=== PATIENT | female | born 2000 | race Caucasian/White ===

== ENCOUNTER 2019-12-18 14:00 | Emergency (ER) | payer MEDICAID ==
[2019-12-18 14:10] VITALS: BP 131/83
[2019-12-18] MEDS ORDERED: POLYMYXIN B SULFATE/TMP OPH SOLN (10 ML/ER DISP) OU PRN (14:56)
--- NOTE | 2019-12-18 14:59 | ER Document Report ---
HPI - HPI Time Seen by Provider: 12/18/19 14:52 Pain Level: Denies Notes: Otherwise healthy 19-year-old female presenting to the emergency department with complaints of bilateral eye redness and drainage. Patient denies any pain, denies any blurred vision. She states this is been going on for approximately 24 hours. Denies the use of any contact lenses. - EENT EENT: REPORTS: Eye problems - REPRODUCTIVE Reproductive: DENIES: : Past Medical History - General Information source: Patient - Social History Smoking Status: Never Smoker Chew tobacco use (# tins/day): No Frequency of alcohol use: None Drug Abuse: None Family History: Reviewed & Not Pertinent Patient has suicidal ideation: No Patient has homicidal ideation: No - Medical History Medical History: Negative Past Surgical History: Reports: Hx Tonsillectomy Vertical Provider Document - CONSTITUTIONAL Notes: PHYSICAL EXAMINATION: GENERAL: Well-appearing, well-nourished and in no acute distress. HEAD: Atraumatic, normocephalic. EYES: Pupils equal round extraocular movements intact, conjunctiva are erythematous bilaterally with yellowish exudates. ENT: Nares patent NECK: Normal range of motion LUNGS: No respiratory distress Musculoskeletal: Normal range of motion NEUROLOGICAL: Normal speech, normal gait. PSYCH: Normal mood, normal affect. SKIN: Warm, Dry, normal turgor, no rashes or lesions noted. Course - Re-evaluation Re-evalutation: Exam consistent with conjunctivitis. Will start patient on Polytrim drops. Patient verbalized understanding and agreement with plan. - Vital Signs Vital signs: Temp Pulse Resp BP Pulse Ox 98.2 F 101 H 18 131/83 H 99 12/18/19 14:09 12/18/19 14:09 12/18/19 14:09 12/18/19 14:09 12/18/19 14:09 Discharge - Discharge Clinical Impression: Conjunctivitis Qualifiers: Conjunctivitis type: acute Acute conjunctivitis type: unspecified Laterality: bilateral Qualified Code(s): H10.33 - Unspecified acute conjunctivitis, bilateral Condition: Stable Disposition: HOME, SELF-CARE Instructions: Conjunctivitis ([facility]), Eyedrop Use ([facility]) Additional Instructions: Please use antibiotic drops as prescribed. Place 1 drop in each eye every 3 hours while awake for the next 7 days. Wash all of your linens tomorrow.
== END 2019-12-18 15:03 | disposition home or self-care (01) ==
LOC: ER 14:00
DX: H10.33 Unspecified acute conjunctivitis, bilateral (principal); H57.13 Ocular pain, bilateral
CPT/HCPCS: 99282; J3490

== ENCOUNTER 2020-07-15 03:28 | Emergency (ER) | payer MEDICAID, OTHER ==
[2020-07-15 04:26] LABS: ABSOLUTE EOSINOPHILS # (AUTO) 0.1 10^3/uL (0.0-0.6); ABSOLUTE LYMPHOCYTES (AUTO) 2.5 10^3/uL (0.5-4.7); ABSOLUTE NEUT (AUTO) 15.6 10^3/uL (1.7-8.2); BASOPHILS % (AUTO) 0.1 % (0-2); EOSINOPHILS % (AUTO) 0.4 % (0-6); HEMOGLOBIN 12.6 g/dL (12.0-15.5); LYMPHOCYTES % (AUTO) 13.2 % (13-45); MEAN CORPUSCULAR HEMOGLOBIN 29.5 pg (27.0-33.4); MEAN CORPUSCULAR HGB CONC 34.9 g/dL (32.0-36.0); MEAN CORPUSCULAR VOLUME 85 fl (80-97); MONOCYTES % (AUTO) 5.1 % (3-13); PLATELET COUNT 264 10^3/uL (150-450); RED BLOOD COUNT 4.26 10^6/uL (3.72-5.28); RED CELL DISTRIBUTION WIDTH 13.6 % (11.5-14.0); SEGMENTED NEUTROPHILS % (AUTO) 81.2 % (42-78); TOTAL CELLS COUNTED % (AUTO) 100 %; WHITE BLOOD COUNT 19.2 10^3/uL (4.0-10.5)
[2020-07-15 04:39] LABS: ALBUMIN 4.1 g/dL (3.5-5.0); ALKALINE PHOSPHATASE 41 U/L (38-126); ANION GAP 12 (5-19); ASPARTATE AMINO TRANSFERASE 20 U/L (14-36); BILIRUBIN,DIRECT 0.1 mg/dL (0.0-0.4); BILIRUBIN,TOTAL 0.9 mg/dL (0.2-1.3); BLOOD UREA NITROGEN 5 mg/dL (7-20); CALCIUM 9.7 mg/dL (8.4-10.2); CARBON DIOXIDE 20 mmol/L (22-30); CHLORIDE 105 mmol/L (98-107); GLUCOSE 91 mg/dL (75-110); POTASSIUM 3.8 mmol/L (3.6-5.0); TOTAL PROTEIN 6.8 g/dL (6.3-8.2)
[2020-07-15 05:00] LABS: APPEARANCE,URINE SLIGHTLY-CLOUDY; BILIRUBIN,URINE NEGATIVE (NEGATIVE); COLOR,URINE YELLOW; GLUCOSE, URINE NEGATIVE (NEGATIVE); KETONES,URINE NEGATIVE (NEGATIVE); LEUKOCYTE ESTERASE,URINE MODERATE (NEGATIVE); NITRITE,URINE NEGATIVE (NEGATIVE); PROTEIN,URINE NEGATIVE (NEGATIVE); URINE SPECIFIC GRAVITY 1.019; UROBILINOGEN,URINE NEGATIVE mg/dL (<2.0)
[2020-07-15] MEDS ORDERED: METOCLOPRAMIDE HCL INJ/PF 10 MG/2 ML SDV IV ONE (05:18)
[2020-07-15] MEDS ORDERED: NORMAL SALINE 1000 ML 1,000 ML IV ONE (05:18)
[2020-07-15] MEDS ORDERED: CEFTRIAXONE 1 GM/D5W RTU 50 ML IV ONE (05:59)
--- NOTE | 2020-07-15 06:01 | ER Document Report ---
ED General - General Chief Complaint: Abdominal Pain Stated Complaint: 9 WEEKS WITH SEVERE CRAMPS Time Seen by Provider: 07/15/20 05:59 Notes: 20-year-old female G1, P0 approximate 10 weeks by dates presents with upper abdominal pain intermittently with nausea. She vomited once in the waiting room. Started last night worse this morning. No right lower quadrant pain, no fever, mild dysuria and frequency. No more discharge than usual and no bleeding. She has not been seen by [facility] but is planning to do so, but gets most of her care through the [facility] She denies a history of kidney stones or pyelonephritis. - Related Data Allergies/Adverse Reactions: No Known Allergies Allergy (Verified 07/15/20 03:42) Home Medications: PRE-NATALS Past Medical History - General Information source: Patient - Social History Smoking Status: Never Smoker Frequency of alcohol use: None Drug Abuse: None Family History: Reviewed & Not Pertinent Past Surgical History: Reports: Hx Tonsillectomy Review of Systems - Review of Systems Notes: REVIEW OF SYSTEMS GEN: Denies fever, chills, weight loss ENT: Denies sore throat, nasal discharge, ear pain EYES: Denies blurry vision, eye pain, discharge CV: Denies chest pain, palpitations, edema RESP: Denies cough, shortness of breath, wheezing GI: See HPI rrhea MSK: Denies joint pain/swelling, edema, SKIN: Denies rash, skin lesions LYMPH: Denies swollen glands/lymph nodes NEURO: Denies headache, focal weakness or numbness, dizziness PSYCH: Denies depression, suicidal or homicidal ideation PHYSICAL EXAMINATION General: No acute distress, well-nourished Head: Atraumatic, normocephalic ENT: Mouth normal, oropharynx moist, no exudates or tonsillar enlargement Eyes: Conjunctiva normal, pupils equal, lids normal Neck: No JVD, supple, no guarding CVS: Normal rate, regular rhythm, no murmurs Resp: No resp distress, equal and normal breath sounds bilaterally GI: Nondistended, soft, no tenderness to palpation, no rebound or guarding Ext: No deformities, no edema, normal range of motion in upper and lower ext Back: No CVA or midline TTP Skin: No rash, warm Lymphatic: No lymphadeopathy noted Neuro: Awake, alert. Face symmetric. GCS 15. Physical Exam - Vital signs Vitals: Temp Pulse Resp BP Pulse Ox 98.2 F 90 18 145/79 H 99 07/15/20 03:40 07/15/20 03:40 07/15/20 03:40 07/15/20 03:40 07/15/20 03:40 Course - Re-evaluation Re-evalutation: 07/15/20 06:10 Young female presents with nausea vomiting during with some transient abdominal pain not reproducible on exam She has no CVA tenderness no abdominal tenderness, and after her ultrasound ordered at triage I saw her in triage. She looks well heart rate is just around 100 no tenderness and has had ice chips without vomiting thus far. She does have a white count, however I would not consider this florid sepsis and will attempt to treat her with oral Zofran begin oral antibiotics. Given that she is already tolerating p.o. I think this is reasonable plan Her ultrasound is reassuring per parts technician will be read by radiology but I verify these findings Also discussed with Dr. Walton from [facility] who agrees that she does not meet admission criteria can be safely managed as an outpatient and will get her in the office in the next couple of days. I have discussed with the patient there likely diagnosis, aftercare plan, follow-up plans and my usual and customary return precautions. They verbalized understanding of this. - Vital Signs Vital signs: Temp Pulse Resp BP Pulse Ox 98.2 F 90 18 145/79 H 99 07/15/20 03:40 07/15/20 03:40 07/15/20 03:40 07/15/20 03:40 07/15/20 03:40 - Laboratory Result Diagrams: 07/15/20 04:05 07/15/20 04:05 Laboratory results interpreted by me: 07/15/20 07/15/20 07/15/20 04:05 04:05 04:05 WBC 19.2 H Absolute Neuts (auto) 15.6 H Seg Neutrophils % 81.2 H Carbon Dioxide 20 L BUN 5 L Creatinine 0.40 L Beta HCG, Quant 32399.00 H Ur Leukocyte Esterase MODERATE H - Diagnostic Test Radiology reviewed: Image reviewed Discharge - Discharge Clinical Impression: Pyelonephritis Condition: Good Disposition: HOME, SELF-CARE Instructions: Pyelonephritis ([facility]), Rocephin ([facility]) Additional Instructions: Given your and UTI is very important you follow-up with your OB [facility] whom I have ild already spoken with Please call first thing tomorrow for an appointment. Prescriptions: Cefuroxime Axetil [Ceftin 500 mg Tablet] 1 tab PO BID #20 tablet Ondansetron [Zofran Odt 4 mg Tablet] 1 - 2 tab PO Q4H PRN #15 tab.rapdis PRN Reason: For Nausea/Vomiting
[2020-07-15] MEDS ORDERED: ONDANSETRON 4 MG TAB.RAPDIS PO ONE (06:07)
[2020-07-15] MEDS ORDERED: CEFUROXIME 500 MG TABLET PO ONE (06:07)
[2020-07-15 06:11] VITALS: BP 131/80
--- NOTE | 2020-07-15 06:25 | RADIOLOGY REPORT (SQ) ---
EXAM DESCRIPTION: US LESS THAN 14 WEEKS COMPLETED DATE/TME: 07/15/2020 05:18 CLINICAL HISTORY: 20 years Female, 9w no prior US abd pain COMPARISON: None. TECHNIQUE: Complete first trimester obstetrical ultrasound obtained with transabdominal imaging. FINDINGS: Uterus: The uterus measures 10.7 x 5.4 x 6.5 cm. No myometrial abnormalities. Gestational sac: Normal-appearing gestational sac. pole: pole identified. [place]-rump length 2.92 cm heart motion: heart rate of 171 bpm. Yolk sac: Normal-appearing yolk sac. Placenta: Not well evaluated due to early gestational age. Right ovary: The right ovary measures 4.5 x 2.0 x 2.8 cm. Left ovary: The left ovary is not visualized. Adnexa: No large adnexal masses. Free fluid: No free pelvic fluid. Color Doppler imaging demonstrates flow within the right ovary. Spectral Doppler imaging was not performed. IMPRESSION: 1. Single live intrauterine with estimated gestational age of 9 weeks, 5 days. heart rate of 171 bpm. Containing obstetrical follow-up recommended.
[2020-07-15] MEDS ORDERED: CEFUROXIME 500 MG TABLET ONE (06:32)
== END 2020-07-15 06:39 | disposition home or self-care (01) ==
LOC: ER 03:28
DX: O23.01 Infections of kidney in pregnancy, first trimester (principal); N12 Tubulo-interstitial nephritis, not specified as acute or chronic; O26.91 Pregnancy related conditions, unspecified, first trimester; R10.9 Unspecified abdominal pain; R11.0 Nausea; Z3A.10 10 weeks gestation of pregnancy
CPT/HCPCS: 99285; 36415; 87086; 84702; 83690; 85025; 80053; 81001; 76801; J3490; S0119